=== PATIENT | female | born 1960 | race Caucasian/White ===

== ENCOUNTER → 2017-04-21 | Outpatient (REF) | payer OTHER | LOC: M LABDRAW1 08:48 | PROVIDERS: ATTEND Internal Medicine Endocrinology, Diabetes & Metabolism | DX: C73 Malignant neoplasm of thyroid gland (principal) ==

== ENCOUNTER 2023-06-25 10:49 | Day surgery (SDC) | payer OTHER ==
[~2023-06-25] VITALS: Ht 167.6 cm; Wt 157.9 kg
[~2023-06-25 10:49] MED LIST: ALBU8.5H INH; ALEV220T22 PO; BUPR1TAB52 PO; FLUO40CA PO; HYDR-3490 PO; LEVO200T31 PO; LISI40TA4 PO; MULTTAB12 PO; NS 1,000 ML IV ONE; OMEG10002 PO; TIZA10TA PO; XALA0.007 OU
[2023-06-25] MEDS ORDERED: LIDOCAINE 2% 100MG/5ML SDV (FOR ANES.) As Ordered ONE (12:32)
[2023-06-25] MEDS ORDERED: propofoL 200 MG/20 ML VIAL As Ordered ONE ×2 (12:32→12:52)
[2023-06-25 14:27] VITALS: BP 180/84; O2SAT 96
== END 2023-06-25 13:35 | disposition home or self-care (01) ==
LOC: M OPP 10:49
PROVIDERS: ATTEND Internal Medicine Gastroenterology
DX: Z12.11 Encounter for screening for malignant neoplasm of colon (principal); Z86.010 Personal history of colon polyps; Z80.0 Family history of malignant neoplasm of digestive organs; D12.6 Benign neoplasm of colon, unspecified; K64.0 First degree hemorrhoids; Z79.1 Long term (current) use of non-steroidal anti-inflammatories (NSAID); Z79.51 Long term (current) use of inhaled steroids; Z79.890 Hormone replacement therapy; Z79.899 Other long term (current) drug therapy